=== PATIENT | male | born 1955 | race Caucasian/White ===

== ENCOUNTER 2017-09-26 11:07 | Inpatient (IN) | payer MEDICAID, OTHER ==
[~2017-09-26] VITALS: Ht 177.8 cm; Wt 54.9 kg
[2017-09-26] MEDS ORDERED: OLAN10TA3 PO (11:46)
[2017-09-26] MEDS ORDERED: BENZ2TAB10 PO (11:46)
[2017-09-26] MEDS ORDERED: BENZ1TAB10 PO (11:46)
[2017-09-26] MEDS ORDERED: VALB80CA PO (11:46)
[2017-09-26] MEDS ORDERED: LISI-660 PO (11:46)
[2017-09-26] MEDS ORDERED: SIMV-260 PO (11:46)
[2017-09-26 12:26] LABS: BASOPHILS % (AUTO) 0.4 % (0.0-2.0); EOSINOPHILS % (AUTO) 0.6 % (1.0-6.0); HEMOGLOBIN 14.2 g/dL (13.5-17.5); LYMPHOCYTES # (AUTO) 0.7 K/uL (1.0-4.8); LYMPHOCYTES % (AUTO) 11.3 % (22.0-44.0); MEAN CORPUSCULAR HEMOGLOBIN 28.7 pg (26.0-34.0); MEAN CORPUSCULAR HGB CONC 34.6 G/dL (31.0-37.0); MEAN CORPUSCULAR VOLUME 83 fL (80-100); MONOCYTES # (AUTO) 0.5 K/uL (0.1-1.0); MONOCYTES % (AUTO) 7.2 % (2.0-9.0); NEUTROPHILS # (AUTO) 5.3 K/uL (1.8-7.7); NEUTROPHILS % (AUTO) 80.5 % (40.0-70.0); PLATELET COUNT (AUTO) 281 K/uL (150-450); RED BLOOD CELL COUNT(AUTO) 4.95 MIL/uL (4.50-5.90); RED CELL DISTRIBUTION WIDTH 13.5 % (11.5-14.5)
[2017-09-26 12:37] LABS: ANION GAP 10 mmol/L (8-16); CALCIUM, TOTAL 8.9 mg/dL (8.8-10.5); CARBON DIOXIDE 25 mmol/L (22-29); CHLORIDE 97 mmol/L (98-107); CREATININE 1.01 mg/dL (0.60-1.30); GLOMERULAR FILTR. RATE CALC > 60 mL/min (>60); GLUCOSE,RANDOM 113 mg/dL (70-110); SODIUM SERUM 132 mmol/L (136-145); UREA NITROGEN, BLOOD 10 mg/dL (7-18)
[2017-09-26 12:44] LABS: ALANINE AMINOTRANSFERASE 24 U/L (12-78); ALKALINE PHOSPHATASE 110 U/L (46-116); ASPARTATE AMINOTRANSFERASE 20 U/L (15-37); BILIRUBIN,TOTAL 0.7 mg/dL (0.1-1.0); TOTAL PROTEIN, SERUM 7.7 g/dL (6.4-8.2)
[2017-09-26 12:51] LABS: ACETAMINOPHEN < 2 mcg/mL (10-30)
[2017-09-26 12:57] LABS: SALICYLATE 0.4 mg/dL (2.8-20.0)
[2017-09-26 13:09] LABS: AMPHET/METH SCREEN,URINE NEGATIVE (NEGATIVE); BARBITURATE SCREEN, URINE NEGATIVE (NEGATIVE); BENZODIAZEPINES SCREEN,URINE NEGATIVE (NEGATIVE); CANNABINOID SCREEN,URINE NEGATIVE (NEGATIVE); COCAINE SCREEN,URINE NEGATIVE (NEGATIVE); METHADONE SCREEN, URINE NEGATIVE (NEGATIVE); OPIATE SCREEN,URINE NEGATIVE (NEGATIVE)
[2017-09-26 13:12] LABS: PHENCYCLIDINE SCREEN,URINE NEGATIVE (NEGATIVE)
[2017-09-26] MEDS ORDERED: IBUPROFEN 400 MG TABLET PO PRN (17:00)
[2017-09-26] MEDS ORDERED: ACETAMINOPHEN 325 MG TABLET PO PRN (17:00)
[2017-09-27 02:21] VITALS: BP 121/68
[2017-09-27] MEDS ORDERED: PNEUMOCOCCAL VACCINE POLYVALENT 0.5 ML VIAL [PPSV23] IM ONE (03:00)
[2017-09-27] MEDS ORDERED: HYDROCORTISONE 1% 30 GM OINTMENT TP PRN (07:15)
[2017-09-27 08:47] VITALS: BP 111/88
[2017-09-27] MEDS ORDERED: LISINOPRIL 5 MG TABLET PO SCH (09:00)
[2017-09-27 09:17] LABS: BASOPHILS % (AUTO) 0.4 % (0.0-2.0); EOSINOPHILS % (AUTO) 2.8 % (1.0-6.0); HEMOGLOBIN 15.3 g/dL (13.5-17.5); LYMPHOCYTES # (AUTO) 0.9 K/uL (1.0-4.8); LYMPHOCYTES % (AUTO) 12.9 % (22.0-44.0); MEAN CORPUSCULAR HEMOGLOBIN 29.1 pg (26.0-34.0); MEAN CORPUSCULAR HGB CONC 34.7 G/dL (31.0-37.0); MEAN CORPUSCULAR VOLUME 84 fL (80-100); MONOCYTES # (AUTO) 0.6 K/uL (0.1-1.0); NEUTROPHILS # (AUTO) 5.1 K/uL (1.8-7.7); NEUTROPHILS % (AUTO) 74.9 % (40.0-70.0); PLATELET COUNT (AUTO) 297 K/uL (150-450); RED BLOOD CELL COUNT(AUTO) 5.24 MIL/uL (4.50-5.90); RED CELL DISTRIBUTION WIDTH 13.4 % (11.5-14.5)
[2017-09-27 09:26] LABS: HEMOGLOBIN A1C 5.9 % (4.5-6.2)
[2017-09-27 09:35] LABS: ALANINE AMINOTRANSFERASE 24 U/L (12-78); ALBUMIN 3.6 g/dL (3.4-5.0); ALKALINE PHOSPHATASE 108 U/L (46-116); ANION GAP 7 mmol/L (8-16); ASPARTATE AMINOTRANSFERASE 20 U/L (15-37); BILIRUBIN,TOTAL 0.5 mg/dL (0.1-1.0); CALCIUM, TOTAL 9.1 mg/dL (8.8-10.5); CARBON DIOXIDE 27 mmol/L (22-29); CHLORIDE 103 mmol/L (98-107); CHOL/HDL RATIO 2.3 (4.2-7.3); CHOLESTEROL 155 mg/dL (131-200); CREATININE 1.11 mg/dL (0.60-1.30); GLOMERULAR FILTR. RATE CALC > 60 mL/min (>60); GLUCOSE,RANDOM 79 mg/dL (70-110); HDL CHOLESTEROL 68 mg/dL (40-60); LDL CHOL (CALC.) 77 mg/dL (0-130); POTASSIUM 4.1 mmol/L (3.5-5.1); SODIUM SERUM 137 mmol/L (136-145); THYROID STIMULATING HORMONE 2.34 uIU/mL (0.36-3.74); TOTAL PROTEIN, SERUM 7.4 g/dL (6.4-8.2); TRIGLYCERIDES 51 mg/dL (15-150); UREA NITROGEN, BLOOD 16 mg/dL (7-18)
[2017-09-27] MEDS: LORazepam 2 MG TABLET PO PRN (16:15)
[2017-09-27] MEDS: HALOPERIDOL 5 MG TABLET PO PRN (16:15)
[2017-09-27 18:10] VITALS: BP 122/79
[2017-09-27] MEDS: SIMVASTATIN 20 MG TABLET PO SCH (20:43)
[2017-09-27] MEDS ORDERED: SIMVASTATIN 20 MG TABLET PO SCH (21:00)
[2017-09-28 01:24] VITALS: BP 130/86
[2017-09-28 08:47] VITALS: BP 118/79
[2017-09-28] MEDS: LORazepam 2 MG TABLET PO PRN ×2 (09:32→16:15)
[2017-09-28] MEDS: LISINOPRIL 5 MG TABLET PO SCH (09:33)
[2017-09-28] MEDS: HALOPERIDOL 5 MG TABLET PO PRN ×2 (09:33→16:15)
[2017-09-28 16:14] VITALS: BP 123/84
[2017-09-28] MEDS: SIMVASTATIN 20 MG TABLET PO SCH (20:19)
[2017-09-28] MEDS: HALOPERIDOL 5 MG TABLET PO SCH (20:19)
[2017-09-29 02:06] VITALS: BP 114/79
[2017-09-29] MEDS: LISINOPRIL 5 MG TABLET PO SCH (08:57)
[2017-09-29] MEDS: BENZTROPINE MESYLATE 1 MG TABLET PO SCH ×2 (08:57→16:12)
[2017-09-29 09:14] VITALS: BP 133/90
[2017-09-29 16:16] VITALS: BP 126/82
[2017-09-29] MEDS: HALOPERIDOL 5 MG TABLET PO SCH (20:04)
[2017-09-29] MEDS: SIMVASTATIN 20 MG TABLET PO SCH (20:04)
[2017-09-30] VITALS: BP 120/81
[2017-09-30] MEDS: ZOLPIDEM TARTRATE 10 MG TABLET PO PRN ×2 (00:08→21:53)
[2017-09-30 08:21] VITALS: BP 104/69
[2017-09-30] MEDS: LISINOPRIL 5 MG TABLET PO SCH (09:27)
[2017-09-30] MEDS: BENZTROPINE MESYLATE 1 MG TABLET PO SCH ×2 (09:27→16:31)
[2017-09-30 16:20] VITALS: BP 135/90
[2017-09-30] MEDS: SIMVASTATIN 20 MG TABLET PO SCH (20:06)
[2017-09-30] MEDS: HALOPERIDOL 5 MG TABLET PO SCH (20:07)
[2017-10-01 05:50] VITALS: BP 102/70
[2017-10-01 08:29] VITALS: BP 110/64
[2017-10-01] MEDS: LISINOPRIL 5 MG TABLET PO SCH (08:39)
[2017-10-01] MEDS: BENZTROPINE MESYLATE 1 MG TABLET PO SCH ×2 (08:40→16:18)
[2017-10-01 16:20] VITALS: BP 118/81
[2017-10-01] MEDS: SIMVASTATIN 20 MG TABLET PO SCH (20:09)
[2017-10-01] MEDS: HALOPERIDOL 5 MG TABLET PO SCH (20:09)
[2017-10-01] MEDS: ZOLPIDEM TARTRATE 10 MG TABLET PO PRN (21:18)
[2017-10-02] VITALS: BP 109/70
[2017-10-02] MEDS: LISINOPRIL 5 MG TABLET PO SCH (08:41)
[2017-10-02] MEDS: BENZTROPINE MESYLATE 1 MG TABLET PO SCH ×2 (08:41→17:12)
[2017-10-02 09:57] VITALS: BP 116/68
[2017-10-02 16:00] VITALS: BP 113/65
[2017-10-02] MEDS: SIMVASTATIN 20 MG TABLET PO SCH (20:54)
[2017-10-02] MEDS: HALOPERIDOL 5 MG TABLET PO SCH (20:54)
[2017-10-02] MEDS: ZOLPIDEM TARTRATE 10 MG TABLET PO PRN (22:09)
[2017-10-03 06:26] VITALS: BP 102/62
[2017-10-03 09:05] VITALS: BP 112/72
[2017-10-03] MEDS: BENZTROPINE MESYLATE 1 MG TABLET PO SCH ×2 (09:09→16:12)
[2017-10-03] MEDS: LISINOPRIL 5 MG TABLET PO SCH (09:09)
[2017-10-03] MEDS ORDERED: BENZ1TAB10 PO (16:48)
[2017-10-03] MEDS ORDERED: HALO5TAB2 PO (16:48)
[2017-10-03 18:05] VITALS: BP 128/74
== END 2017-10-03 17:55 | disposition home or self-care (01) | DRG 750 ==
LOC: EMS 11:08 → B2S 09-27 00:09
PROVIDERS: ADMIT Psychiatry & Neurology Psychiatry; ATTEND Psychiatry & Neurology Psychiatry
DX: F25.9 Schizoaffective disorder, unspecified (principal); R45.851 Suicidal ideations; E87.1 Hypo-osmolality and hyponatremia; E78.00 Pure hypercholesterolemia, unspecified; F32.9 Major depressive disorder, single episode, unspecified; Z28.21 Immunization not carried out because of patient refusal; E78.5 Hyperlipidemia, unspecified; F10.10 Alcohol abuse, uncomplicated; F41.9 Anxiety disorder, unspecified; I10 Essential (primary) hypertension; Z71.41 Alcohol abuse counseling and surveillance of alcoholic
CPT/HCPCS: 83036; 84443; 99285; G0480; G0481

== ENCOUNTER 2020-10-22 14:00 | Inpatient (IN) | payer MEDICARE, OTHER ==
[~2020-10-22] VITALS: Ht 170.2 cm; Wt 61.8 kg
[~2020-10-22 14:00] MED LIST: BENZ1TAB10 PO; HALO5TAB2 PO; LISI-892 PO; SIMV-260 PO
[2020-10-22] MEDS ORDERED: HEPARIN SODIUM,PORCINE 1,000 UNITS/ML VIAL IVP ONE ×3 (14:16→23:45)
[2020-10-22] MEDS ORDERED: MANNITOL 25%-12.5 GM/50 ML VIAL IVP ONE (14:16)
[2020-10-22] MEDS ORDERED: OLANZapine 5 MG TABLET PO ONE (17:45)
[2020-10-22 18:17] LABS: BASOPHILS % (AUTO) 0.2 % (0.0-2.0); EOSINOPHILS % (AUTO) 0.5 % (1.0-6.0); HEMOGLOBIN 8.7 g/dL (13.5-17.5); LYMPHOCYTES # (AUTO) 0.5 K/uL (1.0-4.8); LYMPHOCYTES % (AUTO) 5.2 % (22.0-44.0); MEAN CORPUSCULAR HEMOGLOBIN 24.3 pg (26.0-34.0); MEAN CORPUSCULAR HGB CONC 32.2 G/dL (31.0-37.0); MEAN CORPUSCULAR VOLUME 75 fL (80-100); MONOCYTES # (AUTO) 0.7 K/uL (0.1-1.0); MONOCYTES % (AUTO) 6.9 % (2.0-9.0); NEUTROPHILS # (AUTO) 8.4 K/uL (1.8-7.7); PLATELET COUNT (AUTO) 302 K/uL (150-450); RED BLOOD CELL COUNT(AUTO) 3.59 MIL/uL (4.50-5.90); RED CELL DISTRIBUTION WIDTH 19.5 % (11.5-14.5)
[2020-10-22 18:22] LABS: NEUTROPHILS % (AUTO) 87.2 % (40.0-70.0)
[2020-10-22 18:54] LABS: ALANINE AMINOTRANSFERASE 15 U/L (12-78); ALBUMIN 3.1 g/dL (3.4-5.0); ALKALINE PHOSPHATASE 107 U/L (46-116); ANION GAP 27 mmol/L (8-16); ASPARTATE AMINOTRANSFERASE 9 U/L (15-37); BILIRUBIN,TOTAL 0.5 mg/dL (0.1-1.0); C-REACTIVE PROTEIN QUANT 1.49 mg/dL (0.00-0.30); CALCIUM, TOTAL 8.1 mg/dL (8.8-10.5); CHLORIDE 93 mmol/L (98-107); GLOMERULAR FILTR. RATE CALC 3 mL/min (>60); GLUCOSE,RANDOM 124 mg/dL (70-110); SODIUM SERUM 127 mmol/L (136-145); TOTAL PROTEIN, SERUM 7.5 g/dL (6.4-8.2)
[2020-10-22 19:30] LABS: POTASSIUM 9.2 mmol/L (3.5-5.1)
[2020-10-22 19:36] LABS: CARBON DIOXIDE 7 mmol/L (22-29)
[2020-10-22] MEDS ORDERED: ALBUTEROL SULFATE 5 MG/ML 20 ML NEB SOLN [BULK] NEB ONE ×2 (19:45→20:00)
[2020-10-22] MEDS ORDERED: CALCIUM GLUCONATE 100 MG/ML 10 ML IVP ONE ×3 (19:45→21:15)
[2020-10-22] MEDS ORDERED: DEXTROSE 50%-WATER 25 GM/50 ML SYRINGE IVP ONE (19:45)
[2020-10-22] MEDS ORDERED: INSULIN REGULAR, HUMAN 100 UNITS/ML IVP ONE (19:45)
[2020-10-22 19:50] LABS: PHOSPHORUS 12.4 mg/dL (2.5-4.9)
[2020-10-22] MEDS ORDERED: SODIUM POLYSTYRENE SULFONATE 15 GM/60 ML SUSPENSION BOTTLE PO ONE (20:00)
[2020-10-22] MEDS ORDERED: ACETAMINOPHEN 325 MG TABLET PO PRN (20:00)
[2020-10-22] MEDS ORDERED: SODIUM BICARBONATE [ADULT] 8.4% 50 MEQ/50 ML SYRINGE IVP ONE (20:00)
[2020-10-22 20:07] LABS: COVID AG,FIA SOURCE NASOPHARYNGEAL
[2020-10-22] MEDS ORDERED: SODIUM CHLORIDE 0.9% 2,050 ML IV ONE (20:15)
[2020-10-22 20:33] LABS: ABG A-A DIFF O2 10.4 mmHg (10-20.0); ABG BASE EXCESS -20.8 mmol/L (-2.0-3.0); ABG CARBOXYHEMOGLOBIN 0.4 % (0.0-1.5); ABG HCO3 10.1 mmol/L (22.0-26.0); ABG METHEMOGLOBIN 0.3 % (0.0-1.5); ABG OXYGEN SATURATION 97.7 % (95.0-98.0); ABG TOTAL HEMOGLOBIN 9.4 G/dL (12.0-18.0); PO2, ARTERIAL BG 116.2 mmHg (79.0-87.0); SOURCE, BLOOD GAS ARTERIAL; TEMPERATURE, FAHRENHEIT, BG 98.6 FAHREN (96.0-98.6)
[2020-10-22 20:33] LABS: CREATINE KINASE, TOTAL ONLY 119 U/L (39-308)
[2020-10-22 20:34] LABS: ABG PCO2 19 mmHg (35-45); ABG PH 7.196 (7.35-7.450); SITE, BLOOD GAS LFT RADIAL
[2020-10-22 20:37] LABS: ERYTHROCYTE SEDIMENTATION RATE 79 MM/HR (0-15)
[2020-10-22 21:21] LABS: URIC ACID 6.4 mg/dL (2.6-7.2)
[2020-10-22 21:29] LABS: UREA NITROGEN, BLOOD 246 mg/dL (7-18)
[2020-10-22] MEDS: ONDANSETRON HCL 4 MG/2 ML VIAL IVP PRN (21:31)
[2020-10-22 22:22] LABS: % IRON SATURATION 30.2 % (30-44); IRON, SERUM 69 mcg/dL (50-175); TOTAL IRON BINDING CAPACITY 228 mcg/dL (250-450)
[2020-10-22] MEDS: SODIUM CHLORIDE 0.9% 1,000 ML IV SCH (23:00)
[2020-10-22 23:40] LABS: GLUCOSE,POINT OF CARE 103 MG/DL (70-110)
[2020-10-22] MEDS ORDERED: MANNITOL 25%-12.5 GM/50 ML VIAL IVP PRN (23:45)
[2020-10-23 00:17] LABS: CALCIUM, TOTAL 8.7 mg/dL (8.8-10.5); CREATININE 9.49 mg/dL (0.60-1.30); POTASSIUM 4.2 mmol/L (3.5-5.1)
[2020-10-23] MEDS: SODIUM CHLORIDE 0.9% 1,000 ML IV SCH ×3 (02:06→17:30)
[2020-10-23] MEDS: HYDROmorphone 2 MG/ML VIAL IVP PRN (03:54)
[2020-10-23] MEDS ORDERED: CLINDAMYCIN 600 MG/D5% WATER 50 ML IV ONE (04:00)
[2020-10-23 05:11] LABS: BASOPHILS % (AUTO) 0.4 % (0.0-2.0); EOSINOPHILS % (AUTO) 1.5 % (1.0-6.0); HEMATOCRIT 24.8 % (41-53); HEMOGLOBIN 8.3 g/dL (13.5-17.5); LYMPHOCYTES # (AUTO) 0.4 K/uL (1.0-4.8); LYMPHOCYTES % (AUTO) 4.9 % (22.0-44.0); MEAN CORPUSCULAR HEMOGLOBIN 24.4 pg (26.0-34.0); MEAN CORPUSCULAR HGB CONC 33.5 G/dL (31.0-37.0); MEAN CORPUSCULAR VOLUME 73 fL (80-100); MONOCYTES # (AUTO) 0.7 K/uL (0.1-1.0); MONOCYTES % (AUTO) 8.7 % (2.0-9.0); NEUTROPHILS # (AUTO) 7.1 K/uL (1.8-7.7); NEUTROPHILS % (AUTO) 84.5 % (40.0-70.0); PLATELET COUNT (AUTO) 296 K/uL (150-450); RED CELL DISTRIBUTION WIDTH 19.1 % (11.5-14.5)
[2020-10-23 05:22] LABS: CALCIUM, TOTAL 10.9 mg/dL (8.8-10.5); CREATININE 7.74 mg/dL (0.60-1.30); MAGNESIUM 1.7 mg/dL (1.80-2.40); POTASSIUM 4.8 mmol/L (3.5-5.1)
[2020-10-23] MEDS ORDERED: DEXTROSE 50%-WATER 25 GM/50 ML SYRINGE IVP PRN (06:15)
[2020-10-23] MEDS ORDERED: INSULIN LISPRO 100 UNITS/ML SQ PRN (06:15)
[2020-10-23] MEDS: ONDANSETRON HCL 4 MG/2 ML VIAL IVP PRN (08:21)
[2020-10-23 09:13] LABS: GLUCOSE,POINT OF CARE 149 MG/DL (70-110)
[2020-10-23] MEDS ORDERED: HydrALAZINE HCL 20 MG/ML VIAL IVP PRN (14:45)
[2020-10-23] MEDS: NIFEdipine 30 MG ER TABLET PO SCH (15:13)
[2020-10-23 16:09] LABS: SODIUM,URINE RANDOM 83 mmol/l (20-110)
[2020-10-23 16:10] LABS: CREATININE,URINE RANDOM < 5.0 mg/dL (30.0-125.0)
[2020-10-23 16:29] LABS: APPEARANCE,URINE CLOUDY (CLEAR)
[2020-10-23 16:30] LABS: BILIRUBIN,URINE PRELIM. POSITIVE (NEGATIVE); GLUCOSE, URINE (UA) 100 mg/dL (NEGATIVE); KETONES,URINE 40 mg/dL (NEGATIVE); OCCULT BLOOD,URINE LARGE (NEGATIVE); PH,URINE >=9.0 (5.0-8.0); PROTEIN,URINE SEE CONFIRM (NEGATIVE); UROBILINOGEN,URINE >=8.0 mg/dL (<=1.0)
[2020-10-23 16:31] LABS: NITRATE,URINE POSITIVE (NEGATIVE)
[2020-10-23 16:32] LABS: LEUKOCYTE ESTERASE ,URINE LARGE (NEGATIVE); RBC,URINE Full Field /HPF (0-2); SULFOSALICYLIC ACID,URINE 4+ (Negative)
[2020-10-23 16:33] LABS: WBC,URINE Full Field /HPF (0-5)
[2020-10-23 16:38] LABS: BACTERIA,URINE Moderate /HPF (None Seen)
[2020-10-23 22:15] VITALS: BP 154/94
[2020-10-24] MEDS: SODIUM CHLORIDE 0.9% 1,000 ML IV SCH ×4 (00:54→19:10)
[2020-10-24 04:26] VITALS: BP 136/70
[2020-10-24 07:17] LABS: % IRON SATURATION 33.1 % (30-44)
[2020-10-24 07:18] LABS: CALCIUM, TOTAL 8.2 mg/dL (8.8-10.5); CREATININE 9.56 mg/dL (0.60-1.30); MAGNESIUM 1.7 mg/dL (1.80-2.40); PHOSPHORUS 8.8 mg/dL (2.5-4.9); POTASSIUM 5.6 mmol/L (3.5-5.1)
[2020-10-24 07:58] VITALS: BP 141/73
[2020-10-24] MEDS: NIFEdipine 30 MG ER TABLET PO SCH (08:33)
[2020-10-24 13:36] LABS: BASOPHILS % (AUTO) 0.4 % (0.0-2.0); EOSINOPHILS % (AUTO) 3.7 % (1.0-6.0); HEMATOCRIT 24.2 % (41-53); LYMPHOCYTES # (AUTO) 0.5 K/uL (1.0-4.8); LYMPHOCYTES % (AUTO) 5.6 % (22.0-44.0); MEAN CORPUSCULAR HGB CONC 32.9 G/dL (31.0-37.0); MEAN CORPUSCULAR VOLUME 73 fL (80-100); MONOCYTES # (AUTO) 0.9 K/uL (0.1-1.0); MONOCYTES % (AUTO) 9.8 % (2.0-9.0); NEUTROPHILS # (AUTO) 7.8 K/uL (1.8-7.7); NEUTROPHILS % (AUTO) 80.5 % (40.0-70.0); PLATELET COUNT (AUTO) 275 K/uL (150-450); RED BLOOD CELL COUNT(AUTO) 3.32 MIL/uL (4.50-5.90); RED CELL DISTRIBUTION WIDTH 19.4 % (11.5-14.5)
[2020-10-24] MEDS ORDERED: [UNRECOGNIZED DRUG - OTHER] IRRIG ONE (14:43)
[2020-10-24] MEDS ORDERED: BUPIVACAINE HCL/PF 0.25% 30 ML VIAL ONE (14:43)
[2020-10-24] MEDS ORDERED: IOHEXOL 240 MG/ML 20 ML VIAL ONE (14:43)
[2020-10-24] MEDS ORDERED: LIDOCAINE/PF 1% 30 ML VIAL ONE (14:43)
[2020-10-24 15:30] VITALS: BP 144/93
[2020-10-24] MEDS ORDERED: HEPARIN SODIUM,PORCINE 1,000 UNITS/ML VIAL IVP ONE (15:59)
[2020-10-24] MEDS: SOD FERRIC GLUC COMPLX/SUCROSE 125 MG in SODIUM CHLORIDE 0.9% 100 ML IV SCH (16:00)
[2020-10-24 16:36] LABS: GLUCOMETER DEV NAME(LOC) 5S.2B; GLUCOSE,POINT OF CARE 118 MG/DL (70-110)
[2020-10-24 19:22] VITALS: BP 146/86
[2020-10-24 20:51] LABS: COLLECTION TIME,URINE 24 HR; TPROTEIN TIMED,URINE 5990 mg/dL; TPROTEIN URINE, 24HRS COLL 20965 mg/24Hr (0-165)
[2020-10-24 23:36] VITALS: BP 150/88
[2020-10-25] MEDS: SODIUM CHLORIDE 0.9% 1,000 ML IV SCH ×3 (01:50→15:13)
[2020-10-25 05:24] VITALS: BP 152/81
[2020-10-25 07:04] LABS: BASOPHILS % (AUTO) 0.8 % (0.0-2.0); EOSINOPHILS % (AUTO) 7.7 % (1.0-6.0); HEMATOCRIT 23.5 % (41-53); HEMOGLOBIN 7.7 g/dL (13.5-17.5); LYMPHOCYTES # (AUTO) 0.8 K/uL (1.0-4.8); LYMPHOCYTES % (AUTO) 8.3 % (22.0-44.0); MEAN CORPUSCULAR HEMOGLOBIN 24.3 pg (26.0-34.0); MEAN CORPUSCULAR VOLUME 74 fL (80-100); MONOCYTES % (AUTO) 11.3 % (2.0-9.0); NEUTROPHILS # (AUTO) 6.6 K/uL (1.8-7.7); NEUTROPHILS % (AUTO) 71.9 % (40.0-70.0); PLATELET COUNT (AUTO) 274 K/uL (150-450); RED BLOOD CELL COUNT(AUTO) 3.18 MIL/uL (4.50-5.90); RED CELL DISTRIBUTION WIDTH 19.3 % (11.5-14.5)
[2020-10-25] MEDS: NIFEdipine 30 MG ER TABLET PO SCH (08:07)
[2020-10-25 08:20] LABS: ALBUMIN 2.4 g/dL (3.4-5.0); BILIRUBIN,TOTAL 0.4 mg/dL (0.1-1.0); CALCIUM, TOTAL 8.5 mg/dL (8.8-10.5); CREATININE 6.47 mg/dL (0.60-1.30); TOTAL PROTEIN, SERUM 6.3 g/dL (6.4-8.2)
[2020-10-25 08:21] VITALS: BP 131/68
[2020-10-25 12:06] VITALS: BP 156/99
[2020-10-25] MEDS: SOD FERRIC GLUC COMPLX/SUCROSE 125 MG in SODIUM CHLORIDE 0.9% 100 ML IV SCH (17:00)
[2020-10-25 17:02] VITALS: BP 144/87
[2020-10-25 19:48] VITALS: BP 130/76
[2020-10-25 20:30] LABS: GLUCOMETER DEV NAME(LOC) 5S.1; GLUCOSE,POINT OF CARE 108 MG/DL (70-110)
[2020-10-25 20:31] LABS: GLUCOMETER DEV NAME(LOC) 5S.1; GLUCOSE,POINT OF CARE 135 MG/DL (70-110)
[2020-10-25 23:41] VITALS: BP 138/92
[2020-10-26] MEDS: SODIUM CHLORIDE 0.9% 1,000 ML IV SCH ×2 (01:06→08:13)
[2020-10-26 01:27] LABS: GLUCOMETER DEV NAME(LOC) 5N.1C; GLUCOSE,POINT OF CARE 73 MG/DL (70-110)
[2020-10-26 04:34] VITALS: BP 154/97
[2020-10-26 06:50] LABS: BASOPHILS % (AUTO) 0.4 % (0.0-2.0); EOSINOPHILS % (AUTO) 8.3 % (1.0-6.0); HEMATOCRIT 21.8 % (41-53); HEMOGLOBIN 7.1 g/dL (13.5-17.5); LYMPHOCYTES # (AUTO) 0.8 K/uL (1.0-4.8); LYMPHOCYTES % (AUTO) 8.7 % (22.0-44.0); MEAN CORPUSCULAR HEMOGLOBIN 24.2 pg (26.0-34.0); MEAN CORPUSCULAR HGB CONC 32.6 G/dL (31.0-37.0); MEAN CORPUSCULAR VOLUME 74 fL (80-100); MONOCYTES # (AUTO) 0.9 K/uL (0.1-1.0); MONOCYTES % (AUTO) 10.7 % (2.0-9.0); NEUTROPHILS # (AUTO) 6.4 K/uL (1.8-7.7); NEUTROPHILS % (AUTO) 71.9 % (40.0-70.0); PLATELET COUNT (AUTO) 239 K/uL (150-450); RED BLOOD CELL COUNT(AUTO) 2.93 MIL/uL (4.50-5.90); RED CELL DISTRIBUTION WIDTH 18.5 % (11.5-14.5)
[2020-10-26 07:12] LABS: ALBUMIN 2.5 g/dL (3.4-5.0); BILIRUBIN,TOTAL 0.3 mg/dL (0.1-1.0); CALCIUM, TOTAL 7.5 mg/dL (8.8-10.5); CREATININE 7.83 mg/dL (0.60-1.30); POTASSIUM 5.5 mmol/L (3.5-5.1); TOTAL PROTEIN, SERUM 6.2 g/dL (6.4-8.2)
[2020-10-26 07:23] VITALS: BP 148/90
[2020-10-26] MEDS: NIFEdipine 30 MG ER TABLET PO SCH (08:13)
[2020-10-26 11:17] VITALS: BP 162/95
[2020-10-26] MEDS: HYDROmorphone 2 MG/ML VIAL IVP PRN (11:48)
[2020-10-26] MEDS ORDERED: NIFEdipine 30 MG ER TABLET PO ONE (12:30)
[2020-10-26] MEDS ORDERED: NIFE-39 PO (14:13)
[2020-10-26 14:50] LABS: GLUCOMETER DEV NAME(LOC) 5S.1; GLUCOSE,POINT OF CARE 75 MG/DL (70-110)
[2020-10-26 15:06] VITALS: BP 140/91
[2020-10-27 01:28] LABS: GLUCOMETER DEV NAME(LOC) 5N.1C; GLUCOSE,POINT OF CARE 135 MG/DL (70-110)
== END 2020-10-26 16:45 | disposition hospice, home (50) | DRG 683 ==
LOC: EMS 14:15 → 5S 10-23 18:32
PROVIDERS: ADMIT Internal Medicine; ATTEND Internal Medicine
DX: N17.9 Acute kidney failure, unspecified (principal); K56.7 Ileus, unspecified; E87.2 Acidosis; L03.311 Cellulitis of abdominal wall; R18.8 Other ascites; N13.30 Unspecified hydronephrosis; N32.0 Bladder-neck obstruction; E87.5 Hyperkalemia; E83.39 Other disorders of phosphorus metabolism; D49.4 Neoplasm of unspecified behavior of bladder; R31.0 Gross hematuria; D64.9 Anemia, unspecified; E11.9 Type 2 diabetes mellitus without complications; F20.9 Schizophrenia, unspecified; N40.0 Benign prostatic hyperplasia without lower urinary tract symptoms; K59.00 Constipation, unspecified; M51.36 Other intervertebral disc degeneration, lumbar region; E78.5 Hyperlipidemia, unspecified; I10 Essential (primary) hypertension; Z20.822 Contact with and (suspected) exposure to COVID-19; Z51.5 Encounter for palliative care; Z66 Do not resuscitate; Z85.51 Personal history of malignant neoplasm of bladder
CPT/HCPCS: 36600; 71045; 72192; 76770; 80048; 80053; 81001; 81002; 81050; 82550; 82570; 82728; 82805; 82962; 83036; 83540; 83550; 83605; 83615; 83735; 83930; 83935; 83970; 84100; 84156; 84300; 84484; 84550; 85025; 85045; 85651; 86140; 87086; 87340; 90935; 93005; 94640; 99291; G0378; G0480; J0360; J0610; J1170; J1644; J1815; J2405; J2916; J3490; J7030; J7050; Q9966; 36415-L1; 36415-TC; J7611

== ENCOUNTER 2020-10-30 12:03 | Emergency (ER) | payer MEDICARE, OTHER ==
[~2020-10-30] VITALS: Ht 167.6 cm; Wt 70.0 kg
[~2020-10-30 12:03] MED LIST changes: -LISI-892 PO; +NIFE-39 PO; -SIMV-260 PO
[2020-10-30 13:11] VITALS: BP 156/93
== END 2020-10-30 17:20 ==
LOC: EMS 12:06
DX: I46.9 Cardiac arrest, cause unspecified (principal); C67.9 Malignant neoplasm of bladder, unspecified; I10 Essential (primary) hypertension; F20.9 Schizophrenia, unspecified
CPT/HCPCS: 99283; 99285